=== PATIENT | female | born 1960 | race Caucasian/White ===

== ENCOUNTER → 2019-01-31 11:37 | Outpatient (REF) | payer OTHER, SELFPAY | LOC: LAB 11:37 | PROVIDERS: Family Provider Family Medicine; PCP Internal Medicine; Visit Provider Internal Medicine | DX: R68.83 Chills (without fever) (principal); R05 Cough; R52 Pain, unspecified | CPT/HCPCS: 87400 ==

== ENCOUNTER → 2019-09-07 14:43 | Outpatient (CLI) | payer OTHER, SELFPAY ==
--- NOTE | 2019-09-07 | DI.MG.S_ITS ---
BILATERAL DIGITAL SCREENING MAMMOGRAM 3D/2D WITH CAD WITH AUGMENTATION: 09/07/2019 CLINICAL: Routine screening. Family history of breast cancer. Comparison is made to exams dated: 08/03/2012 mammogram, 10/01/2016 mammogram - [facility], and 08/21/2009 mammogram - [facility]. The tissue of both breasts is heterogeneously dense. This may lower the sensitivity of mammography. Current study was also evaluated with a Computer Aided Detection (CAD) system. Bilateral breast implants are stable and intact. There are benign calcifications in both breasts. No significant masses, calcifications, or other findings are seen in either breast. There has been no significant interval change. IMPRESSION: There is no mammographic evidence of malignancy. A 1 year screening mammogram is recommended. This exam was interpreted at Station ID: [id number]. NOTE: For mammograms, a report in lay terms will be sent to the patient. Approximately 15% of breast malignancies will not be visualized mammographically. In the management of a palpable breast mass, a negative mammogram must not discourage biopsy of a clinically suspicious lesion. Electronically Signed By: Jovi huizar/joanna:09/07/2019 16:35:37 copy to: Arnel Rod letter sent: Normal Exam ACR BI-RADS Category 2: Benign Finding(s) 3342F
== END ==
PROVIDERS: Family Provider Family Medicine; PCP Family Medicine; Visit Provider Internal Medicine
DX: Z12.31 Encounter for screening mammogram for malignant neoplasm of breast (principal); Z80.3 Family history of malignant neoplasm of breast
CPT/HCPCS: 77063; 77067

== ENCOUNTER 2020-08-08 09:34 | Emergency (ER) | payer OTHER, SELFPAY ==
[2020-08-08 09:38] VITALS: O2SAT 100
[2020-08-08 09:39] VITALS: BP 146/76; PULSE 105; O2SAT 97
[2020-08-08 09:42] VITALS: BP 146/76; PULSE 92; RESP 14; TEMP 36.9; O2SAT 96; BMI 26.5
--- NOTE | 2020-08-08 09:59 | ED_ITS ---
HPI - GI Bleed General Chief complaint: GI Bleed Stated complaint: Anal bleeding after food poisoning Time Seen by Provider: 08/08/20 09:50 Source: patient Mode of arrival: Ambulatory Limitations: no limitations History of Present Illness HPI Narrative: Patient is a 60-year-old female with history of colon polyps pr esenting with rectal bleeding. She thought she had food poisoning she they went to an [employer] restaurant last night she had a creamy pus to discharge shortly there after she felt nauseous she vomited twice a large amount. She then started having abdominal cramping she had some diarrhea and then throughout the night she had multiple episodes of small amount of blood. He denies any dizziness lightheadedness she continues to have cramping. She called in and the hotline who recommended she come to the ED for evaluation. She is not on any anti-platelet or anticoagulation medication. She has taken numerous pictures with own which I have reviewed in they do appear to be blood clots. Last col onoscopy was 6 years ago. Pain Consistency: intermittent Severity: mild Related Data Home Medications Medication Instructions Recorded Confirmed omeprazole 20 mg PO QDAY@0600 #0 11/15/16 Previous Rx's Medication Instructions Recorded clobetasol 0 TOPICAL QDAY #1 tube 11/15/16 cholecalciferol (vitamin D3) 50,000 unit PO QWEEK #8 cap 07/26/17 estradiol [Estrace] 1 gm VAGINAL SEE INSTRUCTIONS #1 07/26/17 tube lidocaine HCl [Lidocaine Viscous] 0 SEECOM SEE INSTRUCTIONS PRN #100 10/29/17 ml ondansetron 4 mg PO Q8H PRN #10 tab 08/08/20 Allergies Allergy/AdvReac Type Severity Reaction Status Date / Time Sulfa (Sulfonamide Allergy Unknown Verified 08/08/20 09:41 Antibiotics) [SULFA (SULFONAMIDE ANTIBIOTICS)] Review of Systems Review of Systems Narrative: GENERAL: Denies chills, fatigue, malaise, fever, sweats, travel HEENT: Denies sinus pain, ear pain, sore throat, difficulty swallowing, neck pain RESPIRATORY: Denies dyspnea, cough, wheezing, hemoptysis, sputum. CARDIOVASCULAR: Denies chest pain, palpitations, orthopnea, edema GASTROINTESTINAL: See HPI : Denies dysuria, frequency, incontinence, hematuria, urinary retention, flank pain. MUSCULOSKELETAL: Denies weakness, joint pain, or bony pain SKIN: No rash, no erythema, no pruritus NEUROLOGIC: Denies weakness, dizziness, headache, numbness, change in speech, confusion PSYCHIATRIC: No concerning psychosocial issues. 12 point review of systems is negative except for those stated above and HPI Patient History Medical History Colon polyps (Acute) Surgical History Status post hysterectomy Family History Father Skin cancer Mother Age: 86 Anemia Social History Smoking Status: Unknown if ever smoked Smoking Status: Unknown if ever smoked alcohol intake frequency: holidays/special occasions only Substance Use Type: does not use Exam Initial Vital Signs Initial Vital Signs: Vital Signs Pulse Oximetry 100 08/08/20 09:38 GENERAL: Well-appearing, well-nourished and in no acute distress. HEENT: Head atraumatic,EOMI, pupils reactive, face symmetric, moist mucous membranes CARDIOVASCULAR: Regular rate and rhythm without murmurs, rubs or gallops. RESPIRATORY: Breath sounds equal bilaterally, no wheezes rales or rhonchi. ABDOMEN: Soft, nontender. Normoactive bowel sounds all 4 quadrants. No guarding or rebound. RECTAL: Hemoccult-positive, no hemorrhoids, nontender : No CVA tenderness EXTREMITIES: Normal range of motion, no clubbing or edema. Neurovascularly intact NEUROLOGICAL: Alert and oriented x4.Normal gait and speech. Cranial nerves II through XII grossly intact. SKIN: Warm, dry, no laceration, no petechiae, no rashes or lesions. Course Orders Ordered: ED Orders 08/08/20 09:41 EKG-12 Lead Stat 08/08/20 09:48 Complete Blood Count AUTO DIFF Stat Comprehensive Metabolic Panel Stat Partial Thromboplastin Time Stat Prothrombin Time INR Stat Vital Signs Vital signs: Vital Signs - 8 hr 08/08/20 10:30 08/08/20 11:00 Pulse Rate 73 80 Blood Pressure 107/68 113/72 Pulse Oximetry 100 99 MDM - GI Bleed Lab Data Attestation: I reviewed the patient's lab results. Result diagrams: 08/08/20 09:48 08/08/20 09:48 Labs: Lab Results 08/08/20 08/08/20 08/08/20 Range/Units 09:48 09:48 09:48 WBC 7.6 (4.5-11.0) X10^3/uL RBC 4.20 (4.0-5.2) X10^6/uL Hgb 13.0 (12.0-16.0) g/dL Hct 38.6 (36-46) % MCV 92.1 (80-100) fL MCH 31.0 (26-34) PG MCHC 33.7 (30-36) % RDW 12.8 (11.6-14.8) % Plt Count 264 (150-400) X10^3/uL Neut % (Auto) 81.0 H (50-75) % Lymph % (Auto) 13.5 L (25-40) % Caldwell % (Auto) 5.1 (3-14) % Eos % (Auto) 0.1 L (2-4) % Baso % (Auto) 0.3 (0-2) % Neut # (Auto) 6100 (9689-3974) /uL Lymph # (Auto) 1000 L (4137-3646) /uL Caldwell # (Auto) 400 (0-900) /uL Eos # (Auto) 0 (0-450) /uL Baso # (Auto) 0 (0-100) /uL PT 11.7 (10.1-12.7) SECONDS INR 1.0 (0.9-1.3) APTT 34 (26.4-36.2) SECONDS Sodium 139 (137-145) mmol/L Potassium 3.8 (3.4-5.1) mmol/L Chloride 106 (98-107) mmol/L Carbon Dioxide 27 (22-32) mmol/L BUN 14 (7-17) mg/dL Creatinine 0.80 (0.52-1.04) mg/dL Estimated GFR > 60.0 (>60) mL/min BUN/Creatinine Ratio 17.5 (6-22) Glucose 110 H (70-100) mg/dL Calcium 8.9 (8.4-10.2) mg/dL Total Bilirubin 0.7 (0.2-1.3) mg/dL AST 25 (14-36) IU/L ALT 17 (<35) IU/L Alkaline Phosphatase 101 (38-126) U/L Total Protein 7.2 (6.3-8.2) g/dL Albumin 4.2 (3.5-5.0) g/dL Globulin 3.0 (1.7-4.1) g/dL Albumin/Globulin Ratio 1.4 (1.0-2.8) MDM Narrative Medical decision making narrative: Hemodynamically stable no further episodes in the ED. Symptoms were consistent with gastroenteritis rather than GI bleeding. However I did warn patient that of bleeding intensifies that she should return back to the ED. At this time I think patient can follow up outpatient can be treated conservatively. At this time I do not think imaging is needed abdomen is soft and nontender I discussed all findings with the patient , Education has been performed regarding treatment plan, diagnosis, warning signs and symptoms and all concerns have been addressed. Verbally agree with and understood all of the above. Discharge Plan Departure Patient Disposition: Home Clinical Impression: Gastroenteritis, Colitis with rectal bleeding Discharge Date/Time: 08/08/20 11:30 Instructions: DI for Viral Gastroenteritis -- Adult, DI for Colitis Activity Restrictions/Additional Instructions: *You have been diagnosed with gastroenteritis, rectal bleeding *What to do: At this time you can go home I suspect that year bleeding should slow and taper off however please pay close attention to it. If it does slow I do recommend an outpatient colonoscopy *Continue to take medications as directed Zofran 4 mg every 8 hours if needed for nausea or vomiting *Follow up with your primary care provider in 2-3 days *Return to ER if you should have worsening or heavy bleeding, intense abdominal cramping inability to tolerate fluid or any new, worsening or concerning symptoms Prescriptions: New ondansetron 4 mg tablet,disintegrating 4 mg PO Q8H PRN (Reason: nausea and vomiting) Qty: 10 RF: 0 No Action omeprazole 20 MG capsule,delayed release(DR/EC) 20 mg PO QDAY@0600 Qty: 0 RF: 0 clobetasol 0.05 % ointment 0 Topical QDAY Qty: 1 RF: 1 cholecalciferol (vitamin D3) 50,000 UNIT capsule 50,000 unit PO QWEEK Qty: 8 RF: 0 estradiol [Estrace] 0.01 % cream 1 gm Vaginal SEE INSTRUCTIONS Qty: 1 RF: 3 lidocaine HCl [Lidocaine Viscous] 100 ML solution 0 SEECOM SEE INSTRUCTIONS PRNQty: 100 RF: 1 Referrals: Arnel Rod MD [Primary Care Provider] -
[2020-08-08 10:00] VITALS: BP 128/72; PULSE 92; O2SAT 97
[2020-08-08 10:03] LABS: Add Manual Diff / Slide Review NO; Basophils Absolute Auto 0 /uL (0-100); Basophils Percent Auto 0.3 % (0-2); Eosinophils Absolute Auto 0 /uL (0-450); Eosinophils Percent Auto 0.1 % (2-4); Hematocrit 38.6 % (36-46); Lymphocytes Absolute Auto 1000 /uL (1100-4500); Lymphocytes Percent Auto 13.5 % (25-40); Mean Corpuscular HGB Conc 33.7 % (30-36); Mean Corpuscular Volume 92.1 fL (80-100); Monocytes Absolute Auto 400 /uL (0-900); Monocytes Percent Auto 5.1 % (3-14); Neutrophils Absolute Auto 6100 /uL (1500-7000); Platelet Count 264 X10^3/uL (150-400); Red Cell Distribution Width 12.8 % (11.6-14.8); White Blood Cell Count 7.6 X10^3/uL (4.5-11.0)
[2020-08-08 10:05] LABS: Prothrombin Time 11.7 SECONDS (10.1-12.7)
[2020-08-08 10:08] LABS: PTT Partial Thromboplastin Tim 34 SECONDS (26.4-36.2)
[2020-08-08 10:09] LABS: Alanine Aminotransferase 17 IU/L (<35); Albumin 4.2 g/dL (3.5-5.0); Albumin Globulin Ratio 1.4 (1.0-2.8); Alkaline Phosphatase 101 U/L (38-126); Aspartate Aminotransferase 25 IU/L (14-36); BUN Creatinine Ratio 17.5 (6-22); Bilirubin Total 0.7 mg/dL (0.2-1.3); Blood Urea Nitrogen 14 mg/dL (7-17); Calcium 8.9 mg/dL (8.4-10.2); Carbon Dioxide 27 mmol/L (22-32); Chloride 106 mmol/L (98-107); Estimated Glomerular Filt Rate > 60.0 mL/min (>60); Glucose 110 mg/dL (70-100); HEMOLYSIS < 15 (0-50); Potassium 3.8 mmol/L (3.4-5.1); Sodium 139 mmol/L (137-145); Total Protein 7.2 g/dL (6.3-8.2)
[2020-08-08 10:30] VITALS: BP 107/68; PULSE 73; O2SAT 100
[2020-08-08 11:00] VITALS: BP 113/72; PULSE 80; O2SAT 99
== END 2020-08-08 11:30 | disposition home or self-care (01) ==
PROVIDERS: Emergency Provider Emergency Medicine; Family Provider Family Medicine; PCP Family Medicine
DX: K52.9 Noninfective gastroenteritis and colitis, unspecified (principal); K62.5 Hemorrhage of anus and rectum
CPT/HCPCS: 36415; 80053; 85025; 85610; 85730; 93005; 93010; 99283; 99284

== ENCOUNTER → 2021-07-21 10:01 | Outpatient (CLI) | payer OTHER, SELFPAY ==
--- NOTE | 2021-07-21 | DI.MG.S_ITS ---
BILATERAL DIGITAL SCREENING MAMMOGRAM 3D/2D WITH CAD WITH AUGMENTATION: 07/21/2021 CLINICAL: Routine screening. Family history of breast cancer. Comparison is made to exams dated: 09/07/2019 mammogram, 10/01/2016 mammogram, and 08/03/2012 mammogram - [facility]. The tissue of both breasts is heterogeneously dense. This may lower the sensitivity of mammography. Current study was also evaluated with a Computer Aided Detection (CAD) system. Bilateral breast implants are stable and intact. There are benign calcifications in the right breast. No significant masses, calcifications, or other findings are seen in either breast. There has been no significant interval change. IMPRESSION: BENIGN There is no mammographic evidence of malignancy. A 1 year screening mammogram is recommended. This exam was interpreted at Station ID: [id number]. NOTE: For mammograms, a report in lay terms will be sent to the patient. Approximately 15% of breast malignancies will not be visualized mammographically. In the management of a palpable breast mass, a negative mammogram must not discourage biopsy of a clinically suspicious lesion. Electronically Signed By: Silva patel/joanna:07/21/2021 12:12:04 copy to: Arnel Rod letter sent: Normal Exam ACR BI-RADS Category 2: Benign Finding(s) 3342F
== END ==
PROVIDERS: Family Provider Family Medicine; PCP Family Medicine; Referring Provider Family Medicine; Visit Provider Family Medicine
DX: Z12.31 Encounter for screening mammogram for malignant neoplasm of breast (principal); Z80.3 Family history of malignant neoplasm of breast
CPT/HCPCS: 77063; 77067

== ENCOUNTER → 2023-08-12 13:14 | Outpatient (CLI) | payer OTHER, SELFPAY ==
--- NOTE | 2023-08-12 | DI.CT.S_ITS ---
PROCEDURE: CT SINUS SCREEN WO CON INDICATIONS: Acute frontal sinusitis, unspecified TECHNIQUE: Noncontrast 3.0 mm axial images acquired from the frontal sinuses to the mid-sella, with coronal and sagittal reformats. For radiation dose reduction, the following was used: automated exposure control, adjustment of mA and/or kV according to patient size. COMPARISON: [facility], MR, BRAIN (IAC) W AND WO CONTRAST, 12/03/2008, 19:40. FINDINGS: Image quality: Excellent. Maxillary Sinuses: No bony remodeling or destruction. There is a mucous retention cyst within the inferior left maxillary sinus. Sinuses are otherwise relative clear. Ethmoid Air Cells: No bony remodeling or destruction. Sinuses are clear. Sphenoid Sinuses: No bony remodeling or destruction. Sinuses are clear. Frontal Sinuses: No bony remodeling or destruction. Sinuses are clear. Ostiomeatal Complexes: The ostiomeatal complexes are patent, yet they are constitutionally narrowed, with bilateral Verónica cells. Miscellaneous: Visualized intra-orbital contents are normal. No lolis bullosa or paradoxical turbinate curvature. There is minimal leftward nasal septal deviation. IMPRESSION: No significant active paranasal sinus disease is seen. The ostiomeatal complexes are patent, yet they are constitutionally narrowed, with bilateral Verónica cells. Left maxillary sinus mucous retention cyst noted. Dictated by: Fredy Georges M.D. on 08/12/2023 at 13:13 Approved by: Fredy Georges M.D. on 08/12/2023 at 13:15
== END ==
PROVIDERS: Family Provider Family Medicine; PCP Family Medicine; Referring Provider Family Medicine; Visit Provider Family Medicine
DX: J01.10 Acute frontal sinusitis, unspecified (principal); J34.1 Cyst and mucocele of nose and nasal sinus
CPT/HCPCS: 70486

== ENCOUNTER → 2023-08-19 18:41 | Outpatient (CLI) | payer OTHER, SELFPAY ==
--- NOTE | 2023-08-19 | DI.MRI.S_ITS ---
PROCEDURE: MR HEAD/BRAIN WO/W CON INDICATIONS: Vestibular dizziness / headache TECHNIQUE: Multiplanar multisequential images of the brain were obtained with and without intravenous contrast. COMPARISON: [facility], MR, BRAIN (IAC) W AND WO CONTRAST, 12/03/2008, 19:40. FINDINGS: CSF spaces: Ventricles are normal in size and shape. No extra-axial fluid collections. Basal cisterns are patent. Brain: No intracranial masses or hemorrhage. Kenny/white matter interface is normal. Brainstem appears normal. Diffusion-weighted sequence is unremarkable without evidence of acute infarct. Normal intravascular flow voids are present. There are several nonocclusive filling defects in the right transverse sinus which are linear and nodular, and tightly unchanged from the prior exam 2009 Skull and face: Calvarial marrow signal is normal. Orbits appear normal. 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 No change from prior exam 2008 Unremarkable brain without evidence of acute infarct, hemorrhage or mass lesion. Incidental left maxillary sinus retention cyst Approved by: Car Hoffman M.D. on 08/20/2023 at 8:56
== END ==
PROVIDERS: Family Provider Family Medicine; PCP Family Medicine; Referring Provider Family Medicine; Visit Provider Family Medicine
DX: G44.209 Tension-type headache, unspecified, not intractable (principal); H81.90 Unspecified disorder of vestibular function, unspecified ear; J34.1 Cyst and mucocele of nose and nasal sinus
CPT/HCPCS: 70553; A9579

== ENCOUNTER → 2023-09-15 13:22 | Outpatient (CLI) | payer OTHER, SELFPAY | PROVIDERS: Family Provider Family Medicine; PCP Family Medicine; Referring Provider Family Medicine; Visit Provider Family Medicine | DX: R06.09 Other forms of dyspnea (principal); J98.8 Other specified respiratory disorders | CPT/HCPCS: 94060; 94726; 94729 ==

== ENCOUNTER → 2023-10-11 15:12 | Outpatient (CLI) | payer OTHER, SELFPAY ==
--- NOTE | 2023-10-12 10:38 | DI.NM.S_ITS ---
DATE OF SERVICE: 10/11/2023 PROCEDURE: Exercise treadmill stress test without imaging. ORDERING PROVIDER: Arnel Rod MD INDICATIONS: The patient is a 63-year-old female with asthma and exertional dyspnea. FINDINGS: 1. The patient was able to exercise for 7 minutes, 10 seconds on a standard Hernán protocol suggesting good exercise capacity with an ANKITA of -8%, achieving 7.2 METS. 2. She had a normal heart rate and blood pressure response to exercise, achieving a maximum heart rate of 158 BPM (100% of her predicted maximum). Oxygen saturation remained > 93% throughout exercise. 3. She had no chest discomfort or other anginal symptoms. 4. Her resting ECG showed sinus rhythm with normal ST segments. There were no significant ST-segment shifts or arrhythmias with stress. IMPRESSION: 1. Normal exercise treadmill stress test for ischemia. 2. Good exercise capacity without angina, arrhythmias, or exercise- induced hypoxemia. Bruna Valdes - SALAS/jeremie/ANTHONY doc#: [id number]/job#: [id number] dd: 10/11/2023 17:42:00 dt: 10/11/2023 20:15:00 DICTATING /COPIES TO: Arnel Delatorre MD; Arnel Rod MD COPIES MNE: ALLAN;
== END ==
PROVIDERS: Family Provider Family Medicine; PCP Family Medicine; Referring Provider Family Medicine; Visit Provider Family Medicine
DX: R06.09 Other forms of dyspnea (principal)
CPT/HCPCS: 93017

== ENCOUNTER → 2023-11-21 14:56 | Outpatient (CLI) | payer OTHER, SELFPAY ==
--- NOTE | 2023-11-21 | DI.RAD.S_ITS ---
PROCEDURE: XR CHEST 2V INDICATIONS: DYSPNEA ON EXERTION TECHNIQUE: 2 views of the chest were acquired. COMPARISON: [facility], CHEST 2 VIEW, 03/31/2016, 12:23. [facility], CHEST 2 VIEW, 08/27/2014, 15:29. FINDINGS: Surgical changes and devices: None. Lungs and pleura: Lungs are clear. No pleural effusions or pneumothorax. Mediastinum: Mediastinal contours are normal. Heart size is normal. Bones and chest wall: No suspicious bony abnormalities. Soft tissues appear unremarkable. IMPRESSION: No acute cardiopulmonary abnormality is seen. Dictated by: Bridger Arias M.D. on 11/21/2023 at 15:46 Approved by: Bridger Arias M.D. on 11/21/2023 at 15:46
== END ==
PROVIDERS: Family Provider Family Medicine; PCP Family Medicine; Referring Provider Family Medicine; Visit Provider Family Medicine
DX: R06.09 Other forms of dyspnea (principal)
CPT/HCPCS: 71046

== ENCOUNTER → 2024-12-29 | Outpatient (CLI) | payer OTHER, SELFPAY ==
--- NOTE | 2024-12-29 10:34 | DI.MG.S_ITS ---
MM screening mammo implant BI: 12/29/2024. BI-RADS: 2 CLINICAL: 64-year old female for bilateral screening mammogram. Tyrer-Cuzick lifetime risk of 4.0%. No personal or first-degree family history of breast cancer. The patient has bilateral implants. The patient had a prior right breast biopsy. PRIOR EXAMS 07/21/2021, 09/07/2019, 10/01/2016. MAMMOGRAPHY TECHNIQUE: 2D and 3D (tomosynthesis) digital mammographic views obtained, with additional images as needed for full coverage. Current study was also evaluated with a Computer Aided Detection (CAD) system. DENSITY C. The breasts are heterogeneously dense, which may obscure small masses. IMPLANTS Breast implants present. MAMMOGRAPHY FINDINGS Bilateral: Benign-appearing masses and calcifications noted. There are no suspicious masses, calcifications, or other findings in the breast. No significant change from comparison. IMPRESSION: * No evidence of malignancy with benign findings. RECOMMENDATIONS Bilateral * Annual screening mammography. OVERALL ASSESSMENT CATEGORY BI-RADS-2: Benign. [employer] recommends annual screening mammography beginning at age 40 for women with average risk of breast cancer. ELECTRONICALLY SIGNED: Jane Hanna M.D. on 12/31/2024 at 10:07:02 AM PT Interpreting Station ID: [id number]
== END ==
LOC: MAMMO 10:24
PROVIDERS: Family Provider Family Medicine; PCP Family Medicine; Referring Provider Family Medicine; Visit Provider Family Medicine
DX: Z12.31 Encounter for screening mammogram for malignant neoplasm of breast (principal); R92.333 Mammographic heterogeneous density, bilateral breasts; Z98.82 Breast implant status
CPT/HCPCS: 77063; 77067